=== PATIENT | male | born 1945 | race Caucasian/White ===

== ENCOUNTER 2016-10-23 03:46 | Inpatient (IN) | payer OTHER ==
[~2016-10-23] VITALS: Ht 175.3 cm; Wt 90.0 kg
[2016-10-23] MEDS ORDERED: HYDROCODONE/ACETAMINOPHEN 7.5/325MG TAB PO STA (04:07)
[2016-10-23] MEDS ORDERED: SODIUM CHLORIDE 0.9% 1000ML 1,000 ML IV STA (04:15)
[2016-10-23] MEDS ORDERED: ONDANSETRON INJ 2 MG/ML 2 ML VIAL IV STA (04:15)
[2016-10-23] MEDS ORDERED: HYDROmorphone INJ 1 MG/ML SYR IV STA (04:15)
--- NOTE | 2016-10-23 04:22 | EMERGENCY ROOM VISIT NOTE ---
History Report prepared by Maria Luisaibmassiel: Gracia Daley Under the Supervision of: Dr. Sobia Pathak M.D. First contact with patient: 03:56 Chief Complaint: RIB PAIN Stated Complaint: FALL-PAIN IN RIBS- POSSIBLY BROKEN History of Present Illness The patient is a 71 year old male who presents to the Emergency Room with complaints of persistent bilateral rib pain. He is accompanied by his . He rates his discomfort as a 10/10. Laying down flat worsens his pain and he was unable to sleep tonight, so he came to the ED. He reports around 1500 yesterday , he slipped on ice while walking outside and fell. He landed on his back and had "the wind knocked out of him". He notes he has experienced a broken rib before and his current pain feels similar. The patient has tried taking Ibuprofen every 4 hours, but it has only provided minimal relief. He also complains of pain in his upper abdominal area, but states he thinks it's from the rib pain. He denies any difficulty breathing but admits to increased pain with deep inspiration. Source of History: patient Onset: 1500 yesterday Position: other (bilateral rib area) Symptom Intensity: 10/10 Timing: other (persistent) Modifying Factors (Worsening): rest (laying down flat), breathing (deep inspiration) Modifying Factors (Relieving): ibuprofen Associated Symptoms: No SOB Review of Systems See HPI for pertinent positives & negatives. A total of 10 systems reviewed and were otherwise negative. Past Medical & Surgical Medical Problems: (1) Hypertension Social History Smoking Status: Never Smoker Smokeless Tobacco Use: No Alcohol Use: occasionally Drug Use: none Marital Status: Housing Status: lives with family Occupation Status: retired Current/Historical Medications Scheduled Aspirin (Aspirin Chewable), 81 MG PO DAILY Bilberry (Vaccinium Myrtillus) (Bilberry), 1 DOSE PO DAILY Calcium Carbonate-Vitamin D (Calcium 600 + D), 1 DOSE PO DAILY Echinacea (Echinacea), 1 DOSE PO DAILY Fluticasone Propionate (Nasal) (Flonase Allergy Relief), 1-2 SPRAYS HA DAILY Garlic (Garlic), 1 DOSE PO DAILY Hydrochlorothiazide (Hctz), 25 MG PO DAILY Magnesium (Magnesium 250 mg), 1 DOSE PO DAILY Multiple Vitamins W/ Minerals (Preservision Areds), 1 CAP PO BID Zinc Sulfate (Zinc Sulfate), 1 DOSE PO DAILY Allergies Coded Allergies: No Known Allergies (Unverified , 10/23/16) Physical Exam Vital Signs Date Time Temp Pulse Resp B/P Pulse Ox O2 Delivery O2 Flow Rate FiO2 10/23/16 06:37 88 20 150/95 95 Room Air 10/23/16 05:23 91 18 166/91 93 Room Air 10/23/16 04:56 83 18 168/99 94 Room Air 10/23/16 04:42 93 10/23/16 04:39 91 18 156/106 96 Room Air 10/23/16 03:49 36.8 94 18 167/94 96 Room Air Physical Exam Vital signs reviewed. General: Well-appearing 71 year old male, in no significant distress. HEENT: No scleral icterus, PERRLA, neck supple. Atraumatic. Cardiovascular: Regular rate and rhythm, no extra sounds. Pulmonary: Clear to auscultation bilaterally, normal work of breathing. Abdomen: Soft, mildly distended abdomen with tenderness over the epigastrium, positive bowel sounds. Musculoskeletal: Tender to palpation over the bilateral posterior ribs distally , bilateral CVA tenderness to palpation. No crepitus. Nontender to the cervical and lumbar spines. Tender to mid thoracic spine, no step off or deformity. Neurologic: Patient awake alert and oriented x 3, full strength in all 4 extremities. Skin: Warm, dry, no rash. No significant abrasions/laceration. Medical Decision & Procedures ER Provider Diagnostic Interpretation: These CT scans were reviewed and interpreted by the radiologist and reviewed by myself. CT CHEST With Contrast: No evidence of acute internal traumatic injury. (Lower ribs seen on CT abdomen pelvis as below.) Bony fusion at the right sternoclavicular joint and first rib. Ankylosing spondylitis. At T8-9 disc space, discontinuity of of the syndesmophyte anteriorly, series 601 , image 48, may reflect a horizontal fracture at this level. Query minimal paravertebral stranding at this level. Mild basilar atelectasis at this level. CT ABDOMEN & PELVIS: Query fracture of the left eighth anterior costovertebral junction region which is calcified. Findings in the spine, fused SI joints correlates with ankylosing spondylitis. Degenerative changes of the hips. Colonic diverticulosis. No evidence of acute internal traumatic injury. Radiologist: Mita Perez M.D. Laboratory Results 10/23/16 04:30 Red Blood Count 5.08, Mean Corpuscular Volume 90.0, Mean Corpuscular Hemoglobin 31.5, Mean Corpuscular Hemoglobin Concent 35.0, Mean Platelet Volume 9.8, Neutrophils (%) (Auto) 61.8, Lymphocytes (%) (Auto) 28.6, Monocytes (%) (Auto) 7.7, Eosinophils (%) (Auto) 1.2, Basophils (%) (Auto) 0.6, Neutrophils # (Auto) 5.22, Lymphocytes # (Auto) 2.42, Monocytes # (Auto) 0.65, Eosinophils # (Auto) 0.10, Basophils # (Auto) 0.05 10/23/16 04:30 Test 10/23/16 04:30 10/23/16 04:43 10/23/16 06:30 White Blood Count 8.45 K/uL (4.8-10.8) Red Blood Count 5.08 M/uL (4.7-6.1) Hemoglobin 16.0 g/dL (14.0-18.0) Hematocrit 45.7 % (42-52) Mean Corpuscular Volume 90.0 fL (80-100) Mean Corpuscular Hemoglobin 31.5 pg (25-34) Mean Corpuscular Hemoglobin Concent 35.0 g/dl (32-36) Platelet Count 249 K/uL (130-400) Mean Platelet Volume 9.8 fL (7.4-10.4) Neutrophils (%) (Auto) 61.8 % Lymphocytes (%) (Auto) 28.6 % Monocytes (%) (Auto) 7.7 % Eosinophils (%) (Auto) 1.2 % Basophils (%) (Auto) 0.6 % Neutrophils # (Auto) 5.22 K/uL (1.4-6.5) Lymphocytes # (Auto) 2.42 K/uL (1.2-3.4) Monocytes # (Auto) 0.65 K/uL (0.11-0.59) Eosinophils # (Auto) 0.10 K/uL (0-0.5) Basophils # (Auto) 0.05 K/uL (0-0.2) RDW Standard Deviation 42.6 fL (36.4-46.3) RDW Coefficient of Variation 12.9 % (11.5-14.5) Immature Granulocyte % (Auto) 0.1 % Immature Granulocyte # (Auto) 0.01 K/uL (0.00-0.02) Est Creatinine Clear Calc Drug Dose 63.6 ml/min Estimated GFR () 70.6 Estimated GFR (Non- 60.9 BUN/Creatinine Ratio 10.6 (10-20) Calcium Level 9.2 mg/dl (8.5-10.1) Total Bilirubin 0.4 mg/dl (0.2-1) Direct Bilirubin < 0.1 mg/dl (0-0.2) Aspartate Amino Transf (AST/SGOT) 19 U/L (15-37) Alanine Aminotransferase (ALT/SGPT) 33 U/L (12-78) Alkaline Phosphatase 65 U/L (45-117) Total Protein 7.7 gm/dl (6.4-8.2) Albumin 4.0 gm/dl (3.4-5.0) Lipase 256 U/L (73-393) Bedside Hemoglobin 16.7 g/dl (14.0-18.0) Bedside Hematocrit 49 % (42-52) Bedside Sodium 138 mEq/L (135-144) Bedside Potassium 3.7 mEq/L (3.3-5.0) Bedside Chloride 102 mEq/L (101-112) Bedside Total CO2 23 mEq/l (24-31) Anion Gap 18.0 mmol/L (16-25) Bedside Blood Urea Nitrogen 14 mg/dl (7-18) Bedside Creatinine 1.0 mg/dl (0.6-1.3) Bedside Glucose (other) 118 mg/dl (70-99) Bedside Ionized Calcium (Christopher) 1.16 mmol/l (1.12-1.32) Urine Color YELLOW Urine Appearance CLEAR (CLEAR) Urine pH 5.0 (4.5-7.5) Urine Specific [place] 1.045 (1.000-1.030) Urine Protein NEG (NEG) Urine Glucose (UA) NEG (NEG) Urine Ketones NEG (NEG) Urine Occult Blood NEG (NEG) Urine Nitrite NEG (NEG) Urine Bilirubin NEG (NEG) Urine Urobilinogen NEG (NEG) Urine Leukocyte Esterase NEG (NEG) Laboratory results per my review. Medications Administered Medications (Trade) Dose Ordered Sig/Bonita Route Start Time Stop Time Status Last Admin Dose Admin Hydromorphone HCl (Dilaudid Inj) 1 mg NOW STAT IV 10/23/16 04:15 10/23/16 04:18 DC 10/23/16 04:34 1 MG Ondansetron HCl 4 mg 4 mg NOW STAT IV 10/23/16 04:15 10/23/16 04:18 DC 10/23/16 04:33 4 MG Sodium Chloride (Nss 1000ml) 1,000 ml @ 125 mls/hr Q8H STAT IV 10/23/16 04:15 10/23/16 12:14 10/23/16 04:33 125 MLS/HR Lorazepam (Ativan Inj) 2 mg NOW STAT IV 10/23/16 06:41 10/23/16 06:42 DC 10/23/16 06:50 2 MG ECG Indication: other (rib pain, discomfort with breathing) Rate (beats per minute): 87 Rhythm: normal sinus (normal sinus rhythm) Findings: no acute ischemic change, no ectopy ED Course 0411: Past medical records reviewed. The patient was evaluated in room B2. A complete history and physical examination was performed. 0415: NSS 1000 ml @ 125 mls/hr IV, Zofran 4 mg IV, Dilaudid 1 mg IV. 0635: I discussed the patients case with Dr. Miranda, [facility]. He recommends an MRI of the spine. 0641: Ativan 2 mg IV. 0645: I reevaluated the patient. I discussed his test results and my recommendation that we do an MRI and he and his verbalized complete understanding and agreement. 0700: This patient is a sign-out to Dr. Jordan at the end of my shift. Medical Decision Trauma: Intracranial injury, cervical spine injury, intrathoracic injury, intra- abdominal injury, musculoskeletal injury. This patient was evaluated and appeared to be in some discomfort. IV access was obtained and laboratory work was drawn. The patient was medicated with IV Dilaudid and Zofran. He was hydrated with normal saline solution. CT scan of the chest and abdomen was performed and is read as above. Due to the ankylosing spondylitis and the concern over a T8-T9 disc space abnormality, Dr. Miranda of spine was consulted. He has recommended a thoracic spine MRI. The patient's pain otherwise seems to be along the ribs. He has what appears to be a fracture of the left eighth rib. The case has been signed out to Dr. Jordan at the change of shift, please see his notes for final disposition. Consults Time Called: 629 Consulting Physician: Dr. Miranda, [facility] Returned Call: [phone] I discussed the patients case with Dr. Miranda, [facility]. He recommends an MRI of the spine. Impression Primary Impression: Thoracic spine fracture Additional Impression: Rib fracture Scribe Attestation The scribe's documentation has been prepared under my direction and personally reviewed by me in its entirety. I confirm that the note above accurately reflects all work, treatment, procedures, and medical decision making performed by me. Departure Information Dispostion Still a Patient (This patient is a sign-out to Dr. Jordan at the end of my shift) Referrals Latoya Mcdonough M.D. (PCP) Patient Instructions My [facility] Problem Qualifiers Additional Impression:
[2016-10-23] MEDS ORDERED: OPTIRAY 320 IV PRN (04:30)
[2016-10-23 04:41] LABS: BASO % 0.6 %; BASO ABS # 0.05 K/uL (0-0.2); COMPLETE YES; EOS % 1.2 %; HEMATOCRIT 45.7 % (42-52); IG% 0.1 %; LYMPH % 28.6 %; LYMPH ABS # 2.42 K/uL (1.2-3.4); MEAN CORPUSCULAR HEMOGLOBIN 31.5 pg (25-34); MEAN PLATELET VOLUME 9.8 fL (7.4-10.4); MONO % 7.7 %; NEUT % 61.8 %; PLATELET COUNT 249 K/uL (130-400); RED BLOOD COUNT 5.08 M/uL (4.7-6.1); WHITE BLOOD COUNT 8.45 K/uL (4.8-10.8)
[2016-10-23 04:59] LABS: ISTAT HEMOGLOBIN 16.7 g/dl (14.0-18.0); ISTAT IONIZED CALCIUM 1.16 mmol/l (1.12-1.32)
[2016-10-23 05:01] LABS: ALT/SGPT 33 U/L (12-78); AST/SGOT 19 U/L (15-37); BLOOD UREA NITROGEN 13 mg/dl (7-18); BUN/CREATININE RATIO 10.6 (10-20); CALCIUM 9.2 mg/dl (8.5-10.1); CARBON DIOXIDE 27 mmol/L (21-32); CHLORIDE 102 mmol/L (98-107); GLUCOSE 121 mg/dl (70-99); POTASSIUM 3.9 mmol/L (3.5-5.1); SODIUM 139 mmol/L (136-145)
[2016-10-23 05:03] LABS: ALKALINE PHOSPHATASE 65 U/L (45-117)
[2016-10-23] MEDS ORDERED: ASPCH81X PO (05:04)
[2016-10-23] MEDS ORDERED: HYDR25TA4 PO (05:04)
[2016-10-23] MEDS ORDERED: GARL400T2 PO (05:07)
[2016-10-23] MEDS ORDERED: MULTCAP33 PO (05:07)
[2016-10-23] MEDS ORDERED: CALC-20 PO (05:07)
[2016-10-23] MEDS ORDERED: ECHI380C2 PO (05:07)
[2016-10-23] MEDS ORDERED: BILB500C PO (05:09)
[2016-10-23] MEDS ORDERED: ZINC1CAP PO (05:09)
[2016-10-23] MEDS ORDERED: FLUT0.15 NAE (05:09)
[2016-10-23] MEDS ORDERED: MAGN250T3 PO (05:09)
[2016-10-23] MEDS ORDERED: LORAZEPAM 2 MG/ML 1 ML VIAL IV STA (06:41)
[2016-10-23 06:59] LABS: URINE APPEARANCE CLEAR (CLEAR); URINE BILIRUBIN NEG (NEG); URINE COLOR YELLOW; URINE NITRITE NEG (NEG); URINE SPECIFIC GRAVITY 1.045 (1.000-1.030); UROBILINOGEN NEG (NEG); ZZUR CULT IF INDIC CLEAN CATCH NO
[2016-10-23 07:03] LABS: MANUAL MICROSCOPIC REQUIRED? NO; REVIEW REQ? NO
--- NOTE | 2016-10-23 07:07 | DIAGNOSTIC IMAGING REPORT ---
CT OF THE CHEST WITH IV CONTRAST CLINICAL HISTORY: Left back pain status post trauma COMPARISON STUDY: No previous studies for comparison. TECHNIQUE: Following the IV administration of 91 mL of Optiray-320, CT of the thorax was performed from the thoracic inlet to the lung bases. Images are reviewed in the axial, sagittal, and coronal planes. IV contrast was administered without complication. CT DOSE: FINDINGS: Thyroid: Imaged portions of the thyroid gland are normal in appearance. Thoracic aorta: The thoracic aorta is normal in course and caliber, noting standard 3-vessel arch anatomy. No aneurysm or dissection is seen. Pulmonary vasculature: The pulmonary trunk is normal in caliber. There are no central filling defects identified to suggest pulmonary embolus. Note that this examination was not protocoled for the evaluation of pulmonary emboli. HEART: There are coronary artery calcifications present. Lungs and pleural spaces: There are no pleural effusions. There are dependent atelectatic changes. There is no pneumothorax. Mediastinum: There is no mediastinal lymphadenopathy. Mercy: Clear. Axilla: Clear. Upper abdomen: There is a partially visualized 14 mm left adrenal nodule. Skeletal structures: There is ankylosis of the dorsal spine. There is a left scapular fracture. There is a possible horizontal cleavage fracture through the T8-9 disc. IMPRESSION: 1. No CT evidence of mediastinal injury. 2. No evidence of pulmonary contusion. No evidence of pneumothorax. 3. 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 Left scapular fracture 5. Partially visualized 14 mm left adrenal nodule Electronically signed by: Jens Brar M.D. 10/23/2016 7:05 AM Dictated Date/Time: 10/23/2016 6:55 AM
--- NOTE | 2016-10-23 07:46 | EMERGENCY ROOM VISIT NOTE ---
ED Visit Note Dr. Pathak made me aware of patient @ ~ 07:15 pending MRI results and spine consultation. Patient evaluated at 7:35 after return from MRI. Slip/fall while carrying cat food sustaining back injury. He appears comfortable without neurologic deficits after analgesics as well as sedatives at his request to facilitate MRI without anxiety. CT report noted: Ankylosis of the dorsal spine with a possible horizontal cleavage fracture through the T8-9 disc, Left scapular fracture. Dr. Brito reportedly aware and will consult in ED this morning.
--- NOTE | 2016-10-23 07:57 | DIAGNOSTIC IMAGING REPORT ---
MRI THORACIC SPINE WITHOUT CLINICAL HISTORY: T8-T9 fracture, fall PRIOR STUDIES: CT scan the thoracic spine dated 10/23/2016 TECHNIQUE: MR scanning of the thoracic spine was performed using multiple pulse sequences. No gadolinium was administered. FINDINGS: There is ankylosis of the dorsal spine. There is a fracture through the anterior T8-9 syndesmophyte. There is increased T2 signal within the T8-9 disc, consistent with an acute cleavage fracture. The fracture extends to the posterior longitudinal ligament, and appears to strip the ligament from the posterior aspect the T8 vertebra. There is mild prevertebral edema. There is no associated epidural hematoma. No additional fractures are visualized. The spinal cord is unremarkable. Incidental note is made of multiple perineural cysts. IMPRESSION: 1. Horizontal cleavage fracture through the T8-9 disc with disruption of both the anterior and posterior longitudinal ligaments. 2. No evidence of epidural hematoma Electronically signed by: Jens Brar M.D. 10/23/2016 7:55 AM Dictated Date/Time: 10/23/2016 7:43 AM
--- NOTE | 2016-10-23 08:08 | DIAGNOSTIC IMAGING REPORT ---
ABDOMEN AND PELVIS CT WITH IV CONTRAST CT DOSE: 1469.09 mGy.cm HISTORY: Trauma. Flank pain. Epigastric pain. TECHNIQUE: Multiaxial CT images of the abdomen and pelvis were performed following the use of intravenous contrast. COMPARISON STUDY: None. FINDINGS: The patient has a history of ankylosing spondylitis which is demonstrated by fusion of the spine and bilateral sacroiliac joints. Nondisplaced horizontal fracture through the T8-T9 disc space level. There is also a nondisplaced fracture through the fused left anterior eighth rib costochondral junction. Mild dependent changes at the lung bases. No pneumoperitoneum. No pneumatosis. Tiny fat-containing umbilical hernia. No retroperitoneal lymphadenopathy. There are fatty changes within the liver. A 9.9 mm hypodense lesion within the inferior aspect of the right hepatic lobe. This is too small to characterize. The gallbladder, pancreas, spleen, and adrenal glands are unremarkable. The kidneys enhance normally. No hydronephrosis. No bowel wall thickening or obstruction. Colonic diverticulosis. IMPRESSION: 1. Nondisplaced horizontal fracture through the fused T8-T9 disc space. 2. Nondisplaced fracture through the fused left anterior eighth costochondral junction. 3. Otherwise, no acute intra-abdominal abnormality. 4. Ankylosing spondylitis. Electronically signed by: Seb Caldwell M.D. 10/23/2016 8:06 AM Dictated Date/Time: 10/23/2016 7:58 AM
[2016-10-23] MEDS ORDERED: ACETAMINOPHEN 325 MG TAB PO PRN (09:15)
[2016-10-23] MEDS ORDERED: ONDANSETRON INJ 2 MG/ML 2 ML VIAL IV PRN (09:15)
[2016-10-23] MEDS ORDERED: PROMETHAZINE HCL INJ 12.5 MG in SODIUM CHLORIDE 0.9% 50ML 50 ML IV PRN (09:15)
[2016-10-23] MEDS ORDERED: LORAZEPAM INJ 1 MG in SYRINGE 0 ML IV PRN (09:15)
[2016-10-23] MEDS ORDERED: NALOXONE HCL 0.4 MG/1 ML VIAL/CARP IV PRN (09:15)
[2016-10-23 10:59] VITALS: O2SAT 93; Ht 175.3 cm; Wt 90.0 kg
[2016-10-23] MEDS: SODIUM CHLORIDE 0.9% 1000ML 1,000 ML IV SCH (11:53)
[2016-10-23] MEDS: MoRPHine SULFATE 1 MG/ML 50 ML PCA CASS IV PRN ×4 (11:54→23:07)
[2016-10-23] MEDS ORDERED: LORAZEPAM 1 MG TAB PO PRN (12:00)
[2016-10-23 12:13] VITALS: BP 117/75; PULSE 86; TEMP 36.4; O2SAT 93
[2016-10-23] MEDS: LACTATED RINGER'S 1000ML 1,000 ML IV SCH ×2 (12:52→22:35)
--- NOTE | 2016-10-23 13:25 | HISTORY & PHYSICAL EXAMINATION ---
DATE OF ADMISSION: 10/23/2016 CHIEF COMPLAINT: Back pain. SUBJECTIVE EXAMINATION: Mr. Livingston is a 71-year-old male who presented to the Emergency Room for evaluation of back injury sustained after slipping and falling. He reports that he had immediate pain in his back. This pain was located on his back without any component of leg pain. He denied any type of numbness or tingling of his lower extremities. He denied any petr weakness. He denied any bowel or bladder disturbances. He was transported to the emergency room by his and diagnostic imaging demonstrated a fracture of his thoracic spine. Consultation was made to Dr. Brito who indicated the patient for admission to the hospital for further treatment. Currently, the patient is comfortable lying in bed. His pain is well controlled. Denying numbness, tingling, or weakness. He reports to me that he has had several previous injuries to his spine in his early 30s and approximately 2 years ago from a fall. Here again he was treated conservatively. At this time, he has no other issues to report and appears stable. PAST MEDICAL HISTORY: Includes hypertension. PAST SURGICAL HISTORY: None. SOCIAL HISTORY: Nonsmoker, nontobacco user. Social alcohol user. He is and retired. ALLERGIES: No known allergies. CURRENT MEDICATIONS: Include aspirin, bilberry, calcium, echinacea, Flonase, garlic, HCTZ, magnesium, PreserVision and zinc. REVIEW OF SYSTEMS: Pertinent for that mentioned in the above HPI. He denied any difficulty breathing, shortness of breath, wheezing, coughing or recent respiratory illnesses. He denied any heart murmurs, palpitations, bluing of his skin or racing heart. Denied any abdominal pain, nausea or vomiting. PHYSICAL EXAMINATION: VITAL SIGNS: Stable with a temperature of 36.4, pulse 86, respiratory rate 18, blood pressure 117/75 and pulse ox 98 on room air. LABORATORY DATA: No abnormal abnormalities noted. GENERAL APPEARANCE: Alert and oriented, lying supine in bed, no distress. CUTANEOUS EXAMINATION: No dimplings, retractions, deformities, scarrings, or markings. CV: RRR LUNGS: CTAB EXTRS: NT ROM, pulses wnl SPINAL EXAMINATION: Cspine NT with fixed position and limited ROM. The patient has tenderness to palpation over the thoracic region of his spine. He has symmetric strength throughout his lower extremities with no focal deficits in all myotomes patterns. Sensation is intact to all dermatomal patterns. Reflexes are +1 at patella and Achilles with no signs of diminished response. Neurologically stable. DIAGNOSTIC STUDIES: Demonstrate a fracture of the T8-T9 syndesmophyte consistent with a cleavage fracture, evidence of ankylosing spondylitis present. IMPRESSION: Thoracic spine fracture. PLAN OF CARE: After discussion with the patient admission to the hospital was recommended for further treatment. At this point, he is going to be placed on bedrest. Faustin catheter will be placed. He will be placed on IV fluids 75 mL per hour of lactated Ringer's. At this point he will be n.p.o. until it is noted that he has bowel sounds present. We are going to obtain a consult from orthotics for the patient to be fit in custom TLSO. Once this is obtained, we will obtain upright x-rays to ensure stability. The patient conveyed an understanding to this. 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 DVT and GI prophylactic measures are in place. We will continue to follow this patient throughout this admission. ROBBY
[2016-10-23 15:42] VITALS: BP 126/78; PULSE 68; TEMP 36.5; O2SAT 95
[2016-10-23] MEDS: DOCUSATE SODIUM 100 MG CAP PO SCH (21:11)
[2016-10-23 22:52] VITALS: BP 129/79; PULSE 78; TEMP 36.8; O2SAT 90
[2016-10-24 03:47] VITALS: BP 117/66; PULSE 86; TEMP 37; O2SAT 93
[2016-10-24] MEDS: MoRPHine SULFATE 1 MG/ML 50 ML PCA CASS IV PRN ×3 (07:02→22:54)
[2016-10-24] MEDS: SODIUM CHLORIDE 0.9% 1000ML 1,000 ML IV SCH (07:04)
[2016-10-24 07:21] VITALS: BP 118/78; PULSE 82; TEMP 37; O2SAT 92
[2016-10-24] MEDS: FLUTICASONE PROPIONATE NA SPR 16 GM BTL NAE SCH (07:41)
[2016-10-24] MEDS: HYDROCHLOROTHIAZIDE 25 MG TAB PO SCH (07:41)
[2016-10-24] MEDS: DOCUSATE SODIUM 100 MG CAP PO SCH ×2 (07:41→21:15)
--- NOTE | 2016-10-24 09:53 | Orthopedic Progress Note ---
Orthopedic Progress Note Date of Service Oct 24, 2016. Subjective Additional Notes: Patient remains sedentary. Back pain continues. No brace as of yet. Pain is relatively controlled. Denies passing gas. Otherwise stable. Objective calves soft nontender, N/V intact, capillary refill less than 2 sec. NTTP over abdomen, distended abdomen Date Time Temp Pulse Resp B/P Pulse Ox O2 Delivery O2 Flow Rate FiO2 10/24/16 08:29 Room Air 10/24/16 07:21 37.0 82 17 118/78 92 Room Air 10/24/16 03:47 37.0 86 16 117/66 93 Room Air 10/23/16 23:35 Room Air 10/23/16 22:52 36.8 78 18 129/79 90 Room Air 10/23/16 15:42 36.5 68 16 126/78 95 Room Air 10/23/16 15:20 Room Air 10/23/16 12:13 36.4 86 18 117/75 93 Nasal Cannula 10/23/16 10:59 93 Room Air Assessment & Plan Assessment: Thoracic spine fracture Plan: Awaiting brace, once fitted, need to obtain upright xrays to ensure stability. Once confirmed, will increase activity. Remain NPO. Will continue to follow
[2016-10-24 10:40] VITALS: BP 133/71; PULSE 75; TEMP 36.5; O2SAT 93
[2016-10-24] MEDS: LACTATED RINGER'S 1000ML 1,000 ML IV SCH (11:50)
[2016-10-24 15:07] VITALS: BP 129/76; PULSE 71; TEMP 36.8; O2SAT 90
--- NOTE | 2016-10-24 15:53 | DIAGNOSTIC IMAGING REPORT ---
LUMBAR SPINE 2 OR 3 VIEWS CLINICAL HISTORY: Thoracic spine fracture COMPARISON STUDY: None FINDINGS: There is ankylosis of the SI joints and lumbar spine. No fractures or subluxations are visualized. IMPRESSION: Ankylosing spondylitis. No lumbar spine fractures or subluxations are visualized on conventional radiographic imaging Electronically signed by: Jens Brar M.D. 10/24/2016 3:51 PM Dictated Date/Time: 10/24/2016 3:48 PM
[2016-10-24 20:33] VITALS: BP 136/74; PULSE 83; TEMP 37.1; O2SAT 92
[2016-10-24 23:35] VITALS: BP 130/68; PULSE 80; TEMP 37; O2SAT 93
[2016-10-25] VITALS (7 sets, daily range): BP systolic 124–176; BP diastolic 71–83; PULSE 74–88; TEMP 36.5–37.2; O2SAT 91–93
[2016-10-25] MEDS: LACTATED RINGER'S 1000ML 1,000 ML IV SCH ×2 (00:57→13:44)
[2016-10-25] MEDS: MoRPHine SULFATE 1 MG/ML 50 ML PCA CASS IV PRN ×2 (06:34→07:00)
[2016-10-25] MEDS: SODIUM CHLORIDE 0.9% 1000ML 1,000 ML IV SCH (07:00)
[2016-10-25] MEDS: DOCUSATE SODIUM 100 MG CAP PO SCH ×2 (07:59→20:31)
[2016-10-25] MEDS: FLUTICASONE PROPIONATE NA SPR 16 GM BTL NAE SCH (07:59)
[2016-10-25] MEDS: HYDROCHLOROTHIAZIDE 25 MG TAB PO SCH (07:59)
[2016-10-25] MEDS ORDERED: OXYC-57 PO (09:46)
--- NOTE | 2016-10-25 09:48 | Discharge Instructions ---
Discharge Instructions Admission Reason for Admission: Thoracic Spine Fracture Discharge Discharge Diagnosis / Problem: Thoracic Spine Fracture Discharge Goals Goal(s): Decrease discomfort, Improve function, Increase independence Activity Recommendations Activity Limitations: as noted below Lifting Limitations: none Exercise/Sports Limitations: none Shower/Bathe: tomorrow No driving . Instructions / Follow-Up Instructions / Follow-Up Call [phone] for a f/u appointment in [address] Brito; Address of office: [address] [place] [address] Current Hospital Diet Patient's current hospital diet: Discharge Diet Recommended Diet: Regular Diet Pending Studies Studies pending at discharge: no Medical Emergencies . Who to Call and When: Medical Emergencies: If at any time you feel your situation is an emergency, please call 911 immediately. . Non-Emergent Contact Non-Emergency issues call your: Surgeon Call Non-Emergent contact if: your pain is not controlled, your pain is concerning you, wound has increased pain, you have any medication questions . "Provider Documentation" section prepared by Gama Ron. VTE Core Measure Inpt VTE Proph given/why not?: Tila Goff
--- NOTE | 2016-10-25 12:22 | DIAGNOSTIC IMAGING REPORT ---
STANDING THORACIC SPINE RADIOGRAPHS CLINICAL HISTORY: T8-T9 fracture. COMPARISON STUDY: Chest CT and thoracic spine MRI October 23, 2016. FINDINGS: Extensive anterior osteophytosis of the thoracic spine is consistent with ankylosing spondylitis. A nondisplaced fracture through the disc at the T8-T9 level is better depicted on prior CT. A nondisplaced fracture extending through the posterior elements at this level is shown on this examination. This is better visualized than on prior CT. No additional fractures are identified. Alignment appears unchanged. IMPRESSION: 1. Horizontal fracture through the T8-T9 disc with extension of the fracture through the posterior elements. The fracture through the posterior elements is more conspicuous than on prior CT suggestive of minimal interval distraction. This represents a 3 column fracture and is considered unstable. Surgical consultation is recommended. Discussed with Gama Ron at time of dictation. 2. Findings consistent with ankylosing spondylitis. Electronically signed by: Willard Mcclain M.D. 10/25/2016 12:21 PM Dictated Date/Time: 10/25/2016 11:01 AM
[2016-10-25] MEDS ORDERED: NURSING VERBAL MED ORDER ONE (23:45)
[2016-10-25] MEDS ORDERED: OXYCODONE/ACETAMINOPHEN 5-325 TAB PO PRN (23:45)
[2016-10-25] MEDS ORDERED: DiphenhydrAMINE HCL 50 MG/ML VIAL ONE (23:48)
[2016-10-25] MEDS ORDERED: OXYCODONE/ACETAMINOPHEN 5-325 TAB ONE (23:48)
[2016-10-26] MEDS: LACTATED RINGER'S 1000ML 1,000 ML IV SCH (03:15)
--- NOTE | 2016-10-26 07:11 | Orthopedic Progress Note ---
Orthopedic Progress Note Date of Service Oct 26, 2016. Subjective Reports: feeling well, pain controlled w PO medications, Denies: SOB, calf pain , chest pain, complaints, light headedness, nausea / vomiting Additional Notes: Improved pain control. Now immobilized. Xrays reviewed by Dr. Brito and felt to be stable at this time. No new issues. He has had a BM. Objective calves soft nontender, N/V intact, capillary refill less than 2 sec., A&O x3, toes mobile Date Time Temp Pulse Resp B/P Pulse Ox O2 Delivery O2 Flow Rate FiO2 10/26/16 00:00 Room Air 10/25/16 23:54 37.2 88 18 145/83 93 Room Air 10/25/16 20:00 36.7 75 18 148/73 92 Room Air 10/25/16 15:25 Room Air 10/25/16 15:10 36.5 74 20 157/81 93 Room Air 10/25/16 12:49 36.9 84 18 128/74 92 Room Air 10/25/16 07:38 Room Air 10/25/16 07:20 36.8 74 18 142/79 92 Room Air Assessment & Plan Assessment: Thoracic spine fracture Plan: brace fitted, xrays reviewed, has had bm, pain is controlled, will discharge home today
[2016-10-26 07:48] VITALS: BP 137/80; PULSE 74; TEMP 36.4; O2SAT 94
[2016-10-26] MEDS: HYDROCHLOROTHIAZIDE 25 MG TAB PO SCH (08:20)
[2016-10-26] MEDS: DOCUSATE SODIUM 100 MG CAP PO SCH (08:20)
[2016-10-26] MEDS: FLUTICASONE PROPIONATE NA SPR 16 GM BTL NAE SCH (08:21)
[2016-10-26 08:28] VITALS: BP 137/80; PULSE 74; TEMP 36.4; O2SAT 94
--- NOTE | 2016-11-08 13:15 | DISCHARGE SUMMARY ---
PRINCIPAL DIAGNOSIS: Thoracic spine fracture. DISCHARGE DIAGNOSIS: Same. HISTORY OF PRESENT ILLNESS: On the above date, 10/23/2016, Mr. Livingston was admitted to the service of Dr. Brito for a thoracic spine fracture after sustaining a fall. Diagnostic studies demonstrated a thoracic compression fracture. Consultation was made to Dr. Brito who indicated for admission for treatment. Throughout his stay, he remained neurovascularly intact. His pain was well managed. He was fitted with a TLSO brace. Ileus was properly managed. There were no complications or issue. He had a stable hospitalization. After confirmation of stability of fracture with bracing, on the date of 10/26/2016 he was indicated for return home. On this date he was discharged from [facility]. DISPOSITION: Home. DISPOSITION CONDITION: Stable. NOTED COMPLICATIONS OR ISSUES: Zero.
== END 2016-10-26 09:22 | disposition home or self-care (01) | DRG 552 ==
LOC: ENRESERVDT → ENRESERVTM → C.EDB 03:49 → C.MSN 09:21
PROVIDERS: ADMIT Orthopaedic Surgery Orthopaedic Surgery of the Spine; ATTEND Orthopaedic Surgery Orthopaedic Surgery of the Spine
DX: S22.069A Unspecified fracture of T7-T8 vertebra, initial encounter for closed fracture (principal); S22.079A Unspecified fracture of T9-T10 vertebra, initial encounter for closed fracture; M45.4 Ankylosing spondylitis of thoracic region; I10 Essential (primary) hypertension; Z79.82 Long term (current) use of aspirin; Z79.899 Other long term (current) drug therapy; W19.XXXA Unspecified fall, initial encounter